=== PATIENT | female | born 1960 | race Caucasian/White ===

== ENCOUNTER 2017-03-29 06:14 | Inpatient (IN) ==
[~2017-03-29 06:14] MED LIST: MORPHINE 10 MG/10 ML VIAL ONE; SODIUM CHLORIDE 0.9% 100 ML IV ONE; TRANEXAMIC ACID 1,000 MG/10 ML VIAL IV ONE; VANCOMYCIN 1,000 MG VIAL ONE; VANCOMYCIN INJ 1,000 MG in SODIUM CHLORIDE 0.9% 250 ML IV ONE; ceFAZolin 1,000 MG VIAL ONE
[2017-03-29] MEDS ORDERED: ALBUTEROL/IPRATROPIUM 3 ML NEB RESP TX ONE (06:23)
[2017-03-29] MEDS: LACTATED RINGERS 1,000 ML IV SCH ×2 (06:47→21:28)
[2017-03-29] MEDS ORDERED: PROPOFOL 200 MG/20 ML VIAL IV ONE (07:09)
[2017-03-29] MEDS ORDERED: LIDOCAINE 1% 5 ML VIAL ONE (07:09)
--- NOTE | 2017-03-29 07:11 | History and Physical Update ---
History and Physical Update - History and Physical H&P was reviewed, the patient examined and there: are no changes in the patients condition since last H&P was completed.
[2017-03-29] MEDS ORDERED: MAGNESIUM HYDROXIDE SUSP 30 ML UDCUP PO PRN (07:12)
[2017-03-29] MEDS ORDERED: ONDANSETRON 4 MG/2 ML VIAL IV PRN (07:12)
[2017-03-29] MEDS ORDERED: BISACODYL 10 MG SUPP RECTAL PRN (07:12)
[2017-03-29] MEDS ORDERED: PROMETHAZINE 25 MG/1 ML VIAL IM PRN (07:12)
[2017-03-29] MEDS ORDERED: NALOXONE 0.4 MG/ML VIAL IV PRN (07:12)
[2017-03-29] MEDS ORDERED: LACTULOSE 20 GM/30 ML UDCUP PO PRN (07:12)
[2017-03-29] MEDS ORDERED: TEMAZEPAM 7.5 MG CAPSULE PO PRN (07:12)
[2017-03-29] MEDS ORDERED: diphenhydrAMINE CAP 25 MG CAPSULE PO PRN (07:12)
[2017-03-29] MEDS ORDERED: oxyCODONE/ACETAMINOPHEN 5-325 MG TABLET PO PRN (07:17)
[2017-03-29] MEDS ORDERED: ROPIVACAINE 0.5% 30 ML VIAL ONE ×2 (08:10→09:50)
[2017-03-29] MEDS: HYDROmorphone PCA 30 MG/30 ML SYRINGE IV SCH (09:29)
--- NOTE | 2017-03-29 09:43 | XRay Report ---
XR knee 2V LT Indication: Joint replacement Comparison: None Technique: Frontal and lateral views of the left knee Findings: Status post total left knee arthroplasty. Superficial skin augustina and surgical drains overlie the knee. Joint space and subcutaneous air noted which is likely postoperative. No evidence of immediate hardware failure. IMPRESSION: Status post total left knee arthroplasty. PROCEDURE INTERPRETED AT [facility] DEPARTMENT OF RADIOLOGY Final Report Signed by: Dr Elijah Valladares
[2017-03-29] MEDS ORDERED: HYDROmorphone 2 MG/1 ML VIAL ONE (09:47)
[2017-03-29] MEDS ORDERED: ONDANSETRON 4 MG/2 ML VIAL ONE (09:47)
[2017-03-29] MEDS ORDERED: BUPIVACAINE 0.5% 50 ML VIAL ONE (09:51)
--- NOTE | 2017-03-29 10:02 | Anesthesia Post-Op ---
Anesthesia Post OP - Post Ansesthetic Evaluation Patient seen in post op: Yes Resp: within normal limits CV: within normal limits Mental: within normal limits Temp: within normal limits Siyr-Fm-Ajlnqsswy: within normal limits Nausea and Vomiting: within normal limits Pain: within normal limits
[2017-03-29 10:36] LABS: Basophils # 0.1 10*3/uL (0.0-0.2); Basophils % 0.6 % (0.0-0.8); Eosinophils # 0.4 10*3/uL (0.0-0.87); Eosinophils % 4.9 % (0.00-10.9); Hematocrit 35.6 VOL% (35.7-47.0); Hemoglobin 11.7 GM/DL (12.0-16.0); Immature Granulocytes % 0.5 %; Immature Granulocytes Absolute 0.04 #; Lymphocytes # 1.9 10*3/uL (1.4-4.0); Lymphocytes % 24.6 % (21.3-54.2); Mean Corpuscular HGB Conc 32.9 GM/DL (32-36); Mean Corpuscular Hemoglobin 31 PG (27-34); Mean Corpuscular Volume 92.7 FL (87-102); Mean Platelet Volume 10.5 FL (9.6-12.0); Monocytes # 0.6 10*3/uL (0.11-0.8); Monocytes % 8.2 % (1.7-12.7); Neutrophils # 4.8 10*3/uL (1.4-7.4); Neutrophils % 61.2 % (38.7-73.9); Platelet Count 243 T/CUMM (130-400); Red Blood Count 3.84 MC/CUMM (3.8-5.5); Red Cell Distribution Width 14.3 % (9.3-17.3); White Blood Count 7.8 T/CUMM (4-12)
[2017-03-29 11:03] LABS: Calcium 8.7 MG/DL (8.5-10.1); Osmolality,Calculated 277.5 MOS/KG (273-304); Potassium 4.7 MMOL/L (3.5-5.1)
--- NOTE | 2017-03-29 11:08 | Pulmonology Progress Note ---
Pulmonary - PN: Subj Interval history: Horacio Maher, ANP-BC, GNP-BC, acting as scribe for Dr. Lazaro Apple Mrs. Rodriguez is a 56 year old white female who underwent left total knee replacement earlier today by Dr. Aj Jr. she was seen postop along with her and son. She appears to be doing well. She is without complaints or concerns. Past history is notable for: Iron deficiency anemia, atrophic gastritis, cheilosis, colon polyps, diverticulosis, hyperlipidemia, and sleep apnea. Medications have been reviewed. Her home medications have been restarted. Labs have been reviewed. White count is 7800 with a normal differential; H&H 11.7/35.6; platelet count 243,000; creatinine 0.80, BUN 14, electrolytes are normal. She is scheduled for repeat labs tomorrow. Exam (Progress Note) - Constitutional Vitals: Period Temp Pulse Resp BP Sys/Rodriguez Pulse Ox Last 24 Hr 98.2 F-98.8 F 66-78 14-18 91-152/50-97 94-99 Exam: Chest is clear Heart no gallop Abdomen is nontender and nondistended; bowel sounds are positive 4 Lower extremity postsurgical as per Dr. Rocha, Ubaldo; nothing to suggest acute deep venous thrombophlebitis Psychiatric presently oriented 3 Neurologic long-term motor function is intact Plan: Continue present treatment. Continue home medications. Agree with follow -up labs in the morning. See orders. Results - Labs CBC & BMP: 03/30/17 05:37 03/30/17 05:37
[2017-03-29] MEDS: BRIMONIDINE/TIMOLOL OPH SOLN 5 ML BOTTLE BOTH EYES SCH ×2 (11:26→20:17)
[2017-03-29] MEDS: oxyCODONE/ACETAMINOPHEN 5-325 MG TABLET PO SCH ×4 (11:30→20:14)
[2017-03-29] MEDS: DOCUSATE SODIUM 100 MG CAPSULE PO SCH ×2 (11:41→20:13)
[2017-03-29] MEDS: FERROUS SULFATE 325 MG TABLET PO SCH ×2 (11:41→20:12)
[2017-03-29] MEDS: clonazePAM 0.5 MG TABLET PO SCH ×2 (11:41→20:13)
[2017-03-29] MEDS: ESCITALOPRAM 10 MG TABLET PO SCH (11:42)
[2017-03-29] MEDS: GABAPENTIN 300 MG CAPSULE PO SCH ×2 (11:45→20:13)
[2017-03-29] MEDS ORDERED: MIDAZOLAM 2 MG/2 ML VIAL ONE (14:07)
[2017-03-29] MEDS ORDERED: fentaNYL 100 MCG/2 ML VIAL ONE (14:07)
[2017-03-29] MEDS ORDERED: SODIUM CHLORIDE 0.9% 250 ML IV ONE (14:08)
[2017-03-29] MEDS ORDERED: KETAMINE 500 MG/10 ML VIAL ONE (14:08)
--- NOTE | 2017-03-29 14:50 | Operative Note ---
DATE OF SURGERY: 03/29/2017 PREOPERATIVE DIAGNOSIS: OSTEOARTHRITIS, LEFT KNEE POSTOPERATIVE DIAGNOSIS: OSTEOARTHRITIS, LEFT KNEE OPERATIVE PROCEDURE: Left total knee (Attune) SURGEON: Alexey Rocha Jr., MD TILE DESIGNER: Dr. Gross ANESTHESIA: Spinal. INDICATIONS: A 56-year-old white female with severe osteoarthritis to her left knee. She is maximi zed conservative treatment to the year including multiple injections. She has also had a previous a rthroscopic procedure, which revealed significant changes to the chondral surfaces. Again, she is m aximized conservative treatments to the years presenting recently for evaluation, felt to be a naeem date for total knee, presenting today for elective procedure. OPERATIVE PROCEDURE: The patient was taken to the operating room, under spinal anesthetic, position ed supine position. The left leg positioned, prepped and draped in a usual sterile manner. She rec eived vancomycin and Ancef preoperatively. The limb was elevated, exsanguinated, and the tourniquet inflated to 330 mmHg. A midline incision made over the anterior aspect of the left knee. Sharp di ssection was carried down through the skin and subcutaneous tissue. A medial parapatellar arthrotom y performed, the knee revealing extensor tricompartmental degenerative changes, worse to the medial side, which was essentially grade 4 throughout. An Intramedullary alignment guide was used to make the appropriate cuts about the distal femur and proximal tibia. Both were sized to a 3 and 8 mm spac e were selected. The PCL retained. The patella resurfaced with a 32-button. After removal of the trial components, all three components were cemented into place. After the cement hardened, the wou nd was closed with over two 1/8 inch Hemovac drains in a standard fashion using #1 Vicryl for the ar throtomy, 2-0 Vicryl for the subcutaneous layer and augustina for skin. Tourniquet was deflated lars lopez wound closure at 35 minutes. She was taken to the recovery room in stable condition. ESTIMATED BLOOD LOSS: 100 mL. COUNTS: Correct.
--- NOTE | 2017-03-29 17:21 | Orthopedic Progress Note ---
Orthopedics - Subjective Interval history: Pain control fair good pulse postoperative block did not work that well discussed up in a.m. Exam - Constitutional Vitals: Period Temp Pulse Resp BP Sys/Rodriguez Pulse Ox Last 24 Hr 97.0 F-99.0 F 65-87 12-18 91-152/50-97 94-99 Results - Labs CBC & BMP: 03/29/17 10:16 03/29/17 10:16
[2017-03-29] MEDS ORDERED: HYDROmorphone 2 MG/1 ML VIAL IV PRN (17:22)
[2017-03-29] MEDS: FONDAPARINUX 2.5 MG/0.5 ML SYRINGE SUBCUT SCH (18:28)
[2017-03-29] MEDS ORDERED: ACETAMINOPHEN 325 MG TABLET PO PRN (18:36)
[2017-03-29] MEDS: DICLOFENAC POTASSIUM PO SCH ×2 (18:40→22:20)
[2017-03-30 06:05] LABS: Basophils % 0.3 % (0.0-0.8); Eosinophils # 0.4 10*3/uL (0.0-0.87); Eosinophils % 3.6 % (0.00-10.9); Hematocrit 31.1 VOL% (35.7-47.0); Hemoglobin 10.5 GM/DL (12.0-16.0); Immature Granulocytes % 0.4 %; Immature Granulocytes Absolute 0.04 #; Lymphocytes # 1.9 10*3/uL (1.4-4.0); Lymphocytes % 20.2 % (21.3-54.2); Mean Corpuscular HGB Conc 33.8 GM/DL (32-36); Mean Corpuscular Hemoglobin 32 PG (27-34); Mean Corpuscular Volume 93.4 FL (87-102); Mean Platelet Volume 10.6 FL (9.6-12.0); Monocytes # 1.3 10*3/uL (0.11-0.8); Neutrophils % 62.5 % (38.7-73.9); Platelet Count 195 T/CUMM (130-400); Red Blood Count 3.33 MC/CUMM (3.8-5.5); Red Cell Distribution Width 14.3 % (9.3-17.3); White Blood Count 9.6 T/CUMM (4-12)
[2017-03-30 06:35] LABS: Calcium 8.2 MG/DL (8.5-10.1); Osmolality,Calculated 278.4 MOS/KG (273-304)
--- NOTE | 2017-03-30 08:21 | Orthopedic Progress Note ---
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
[2017-03-30] MEDS: HYDROmorphone PCA 30 MG/30 ML SYRINGE IV SCH (08:46)
[2017-03-30] MEDS ORDERED: ROSUVASTATIN 10 MG TABLET PO SCH (09:00)
[2017-03-30] MEDS: GABAPENTIN 300 MG CAPSULE PO SCH ×2 (09:53→21:27)
[2017-03-30] MEDS: ESCITALOPRAM 10 MG TABLET PO SCH (09:53)
[2017-03-30] MEDS: DOCUSATE SODIUM 100 MG CAPSULE PO SCH ×2 (09:53→21:26)
[2017-03-30] MEDS: FERROUS SULFATE 325 MG TABLET PO SCH ×2 (09:53→21:27)
[2017-03-30] MEDS: DICLOFENAC POTASSIUM PO SCH ×4 (09:53→21:27)
[2017-03-30] MEDS: BRIMONIDINE/TIMOLOL OPH SOLN 5 ML BOTTLE BOTH EYES SCH ×2 (09:55→21:26)
[2017-03-30] MEDS: clonazePAM 0.5 MG TABLET PO SCH ×2 (10:02→21:27)
[2017-03-30] MEDS: oxyCODONE/ACETAMINOPHEN 5-325 MG TABLET PO SCH ×4 (10:03→21:27)
--- NOTE | 2017-03-30 10:23 | Pulmonology Progress Note ---
Pulmonary - PN: Subj Interval history: Mrs. Rodriguez is a 56 year old white female who underwent left total knee replacement earlier today by Dr. Aj Jr. she was seen postop along with her and son. She appears to be doing well. She is without complaints or concerns. Past history is notable for: Iron deficiency anemia, atrophic gastritis, cheilosis, colon polyps, diverticulosis, hyperlipidemia, and sleep apnea. Medications have been reviewed. Her home medications have been restarted. Labs have been reviewed. White count is 7800 with a normal differential; H&H 11.7/35.6; platelet count 243,000; creatinine 0.80, BUN 14, electrolytes are normal. She is scheduled for repeat labs tomorrow. 03/30/2017. Patient seen along with her . Her pain pump did not work last night. She is fine this morning is beginning range of motion for her legs. She is postop left total knee replacement. H&H is dropped from 11.7/35.6 -11.5/31.1. Patient is asymptomatic. White count platelets are normal electrolytes are normal creatinine is 0.8 with a BUN of 11. Glucoses are under good control. Exam (Progress Note) - Constitutional Vitals: Period Temp Pulse Resp BP Sys/Rodriguez Pulse Ox Last 24 Hr 98.2 F-98.8 F 66-78 14-18 91-152/50-97 94-99 Exam: Face. Symmetrical. Lips and tongue are normal. Neck. Symmetrical. No mass. No meningismus. Chest is clear Heart no gallop Abdomen is nontender and nondistended; bowel sounds are positive 4 Lower extremity postsurgical as per Dr. Rocha, Ubaldo; nothing to suggest acute deep venous thrombophlebitis Psychiatric presently oriented 3 Neurologic long-term motor function is intact The remainder the physical exam is noncontributory. Plan. Continue present treatment. Follow-up CBC in the morning. Exam (Progress Note) - Constitutional Vitals: Period Temp Pulse Resp BP Sys/Rodriguez Pulse Ox Last 24 Hr 97.0 F-99.0 F 65-108 12-20 93-136/47-84 94-98 Results - Labs CBC & BMP: 03/30/17 05:37 03/30/17 05:37
--- NOTE | 2017-03-30 12:41 | Pathology Report from [facility] ---
[facility] [place] [id number] PATIENT NAME : Brie Rodriguez ORDERING DR : BARB CHRISTY JR, MD CLINICAL HX: Left knee osteoarthritis POST-OP DX: Same SPECIMEN INFO: Left knee bone and tissue GROSS DESCRIPTION: The specimen is received in formalin labeled with the patients name and consists of an aggregate of bone, cartilage and soft tissue collectively measuring 10.2 x 15.1 cm. The articular surfaces are focally degenerative with subchondral eburnation and cartilaginous tissue present. Top Lift Scourer tissue submitted in one cassette following decalcification. DIAGNOSIS FOR BRIE RODRIGUEZ: LEFT KNEE BONE & TISSUE: Gross and microscopic finding consistent with osteoarthritis. COLLECTED DATE: 03/29/2017 [facility] REPORT DATE: 03/30/2017 ELECTRONICALLY SIGNED BY: Ruthie Jones III, M.D. 03/30/2017 - 10:29:41 [facility]
[2017-03-30] MEDS: FONDAPARINUX 2.5 MG/0.5 ML SYRINGE SUBCUT SCH (18:33)
[2017-03-30] MEDS: LACTATED RINGERS 1,000 ML IV SCH (21:30)
[2017-03-31 01:28] LABS: Basophils % 0.3 % (0.0-0.8); Eosinophils # 0.5 10*3/uL (0.0-0.87); Eosinophils % 4.8 % (0.00-10.9); Hematocrit 30.2 VOL% (35.7-47.0); Hemoglobin 9.7 GM/DL (12.0-16.0); Immature Granulocytes % 0.5 %; Immature Granulocytes Absolute 0.05 #; Lymphocytes # 1.8 10*3/uL (1.4-4.0); Mean Corpuscular HGB Conc 32.1 GM/DL (32-36); Mean Corpuscular Hemoglobin 31 PG (27-34); Mean Corpuscular Volume 95.6 FL (87-102); Mean Platelet Volume 10.3 FL (9.6-12.0); Monocytes % 9.8 % (1.7-12.7); Neutrophils # 6.6 10*3/uL (1.4-7.4); Neutrophils % 66.6 % (38.7-73.9); Platelet Count 172 T/CUMM (130-400); Red Blood Count 3.16 MC/CUMM (3.8-5.5); Red Cell Distribution Width 14.3 % (9.3-17.3); White Blood Count 9.9 T/CUMM (4-12)
[2017-03-31] MEDS: LACTATED RINGERS 1,000 ML IV SCH ×2 (03:33→06:57)
[2017-03-31] MEDS: HYDROmorphone PCA 30 MG/30 ML SYRINGE IV SCH (08:10)
[2017-03-31] MEDS: clonazePAM 0.5 MG TABLET PO SCH (09:57)
[2017-03-31] MEDS: oxyCODONE/ACETAMINOPHEN 5-325 MG TABLET PO SCH ×3 (09:57→17:28)
[2017-03-31] MEDS: GABAPENTIN 300 MG CAPSULE PO SCH (09:57)
[2017-03-31] MEDS: FERROUS SULFATE 325 MG TABLET PO SCH (09:57)
[2017-03-31] MEDS: ESCITALOPRAM 10 MG TABLET PO SCH (09:57)
[2017-03-31] MEDS: DICLOFENAC POTASSIUM PO SCH ×3 (09:57→17:02)
[2017-03-31] MEDS: FONDAPARINUX 2.5 MG/0.5 ML SYRINGE SUBCUT SCH (09:59)
[2017-03-31] MEDS: DOCUSATE SODIUM 100 MG CAPSULE PO SCH (12:08)
[2017-03-31] MEDS: BRIMONIDINE/TIMOLOL OPH SOLN 5 ML BOTTLE BOTH EYES SCH (12:08)
--- NOTE | 2017-03-31 12:16 | Orthopedic Progress Note ---
Orthopedics - Subjective Interval history: Hematocrit 30 comfortable mobilizing up and down rees ready for discharge he does well with PT will allow home therapy to begin tomorrow Exam - Constitutional Vitals: Period Temp Pulse Resp BP Sys/Rodriguez Pulse Ox Last 24 Hr 98.0 F-98.8 F 88-94 16-20 100-138/55-87 94-99 Results - Labs CBC & BMP: 03/31/17 01:14 03/30/17 05:37
--- NOTE | 2017-03-31 12:17 | Discharge Summary ---
Hospital Course - Hospital Course Hospital Course: Admitted for elective left total knee uncomplicated course discharged home Diagnosis - Discharge Diagnosis (1) Osteoarthritis of left knee Status: Acute Discharge Plan - Discharge Data Disposition: Home Health Service Condition at Discharge: Stable Discharge Diet: advance to your usual diet Activity: ambulate only with your walker, as per physical therapy, increase activity as tolerated Hygiene: may shower, keep area(s) dry Weight Bearing at Discharge: weight bear as tolerated - Discharge Medications Continue Rosuvastatin [Crestor] 5 mg PO MOWEFR Gabapentin 600 mg PO BEDTIME Ferrous Sulfate Tab [Feosol Original Tab] 325 mg PO BID Diclofenac Potassium [Zipsor] 25 mg PO QID Brimonidine/Timolol Oph Soln [Combigan] 1 drop INTRAOCULR BID [place]-3 Fatty Acids [Fish Oil] 900 mg PO DAILY hydroCHLOROthiazide [Hydrochlorothiazide] 12.5 mg PO DAILY Multivit-Min36/Iron/Folic Acid [Geritol Complete Tablet] 1 each PO DAILY Oxycodone HCl/Acetaminophen [Percocet 10-325 mg Tablet] 1 each PO QID Escitalopram [Lexapro] 20 mg PO DAILY clonazePAM TAB [KlonoPIN] 0.25 mg PO BID Cholecalciferol (Vitamin D3) [Vitamin D3] 10,000 unit PO DAILY - Follow Up or Referral - Forms/Instructions Additional Discharge Instructions: Discharged home with home health and home PT daily dressing change resume home medications Percocet 7.5 as needed for pain also aspirin once a day. Weightbearing as tolerated per total knee protocol with CPM unit. Follow-up with ca April 12 or Exam - Constitutional Vitals: Period Temp Pulse Resp BP Sys/Rodriguez Pulse Ox Last 24 Hr 98.0 F-98.8 F 88-94 16-20 100-138/55-87 94-99 Discharge Results Procedures and tests throughout hospitalization: Pending Orders 04/01/17 04:00 Comp Blood Count Auto Diff IN AM Labs on day of discharge: Labs from last 24 hours 03/31/17 01:14 WBC 9.9 RBC 3.16 L Hgb 9.7 L Hct 30.2 L MCV 95.6 MCH 31 MCHC 32.1 RDW 14.3 Plt Count 172 MPV 10.3 Neut % (Auto) 66.6 Lymph % (Auto) 18.0 L [place] % (Auto) 9.8 Eos % (Auto) 4.8 Baso % (Auto) 0.3 Neut # (Auto) 6.6 Lymph # (Auto) 1.8 [place] # (Auto) 1.0 H Eos # (Auto) 0.5 Baso # (Auto) 0.0 Immature Gran % 0.5 Nucleated RBC % 0.0 Immature Gran # 0.05 Nucleated RBCs # 0.00 DS: Provider Date of admission: 03/29/17 06:14 Primary care physician: Bebo Santiago MD Attending physician on admission: Alexey Rocha Jr., MD Consults: 03/29/17 07:12 Consult to Case Mgmt/Social Srvs [CONS] Routine Reason for Case Mgmt/Social Srvs: Rehab Home Health Equipment Consult Comment: CPM Machine deliver to rm 317 before D/C home Consult to Occupational Therapy [CONS] Routine Reason for Occupational Therapy: Evaluate and Treat Consult Comment: ADL's Consult to Physical Therapy [CONS] Routine Reason for Physical Therapy: Evaluate and Treat Gait Training 03/29/17 07:14 Consult to Physician [CONS] Routine Comment: Consulting Provider: Lazaro Apple Consulting Provider Notified: Yes When should Consulting Provider be notified: Now Person Notified: praveena sweeney Date Notified: 03/29/17 Time Notified: 10:49 03/30/17 08:08 Consult to Physical Therapy [CONS] Routine Reason for Physical Therapy: Other Consult Comment: Please deliver Standard Walker to rm before D/C for home rehab use. Discharging clinician: Alexey Rocha Jr., MD
--- NOTE | 2017-03-31 12:20 | Pulmonology Progress Note ---
Pulmonary - PN: Subj Interval history: Mrs. Rodriguez is a 56 year old white female who underwent left total knee replacement earlier today by Dr. Aj Jr. she was seen postop along with her and son. She appears to be doing well. She is without complaints or concerns. Past history is notable for: Iron deficiency anemia, atrophic gastritis, cheilosis, colon polyps, diverticulosis, hyperlipidemia, and sleep apnea. Medications have been reviewed. Her home medications have been restarted. Labs have been reviewed. White count is 7800 with a normal differential; H&H 11.7/35.6; platelet count 243,000; creatinine 0.80, BUN 14, electrolytes are normal. She is scheduled for repeat labs tomorrow. 03/30/2017. Patient seen along with her . Her pain pump did not work last night. She is fine this morning is beginning range of motion for her legs. She is postop left total knee replacement. H&H is dropped from 11.7/35.6 -11.5/31.1. Patient is asymptomatic. White count platelets are normal electrolytes are normal creatinine is 0.8 with a BUN of 11. Glucoses are under good control. 03/31/2017. Patient continues to do very well her CBC is stable. She is anticipating discharge later today. She was seen along with physical therapy. She follows SBE prophylaxis and I discussed that with her today. I rewrote her prescriptions for amoxicillin that she will take before dental and surgical procedures. There are no new problems and overall this patient's done very well. I will sign off. Please reconsult if needed. Exam (Progress Note) - Constitutional Vitals: Period Temp Pulse Resp BP Sys/Rodriguez Pulse Ox Last 24 Hr 98.2 F-98.8 F 66-78 14-18 91-152/50-97 94-99 Exam: Face. Symmetrical. Lips and tongue are normal. Neck. Symmetrical. No mass. No meningismus. Chest is clear Heart no gallop Abdomen is nontender and nondistended; bowel sounds are positive 4 Lower extremity postsurgical as per Dr. Rocha, Ubaldo; nothing to suggest acute deep venous thrombophlebitis Psychiatric presently oriented 3 Neurologic long-term motor function is intact The remainder the physical exam is noncontributory. Plan. 1. 03/30/2017. Continue present treatment. Follow-up CBC in the morning. 2. 03/31/2017. Patient is doing very well. See today's note above. I agree with your plans. I will sign off. Reconsult me if needed. Exam (Progress Note) - Constitutional Vitals: Period Temp Pulse Resp BP Sys/Rodriguez Pulse Ox Last 24 Hr 98.0 F-98.8 F 88-94 16-20 100-138/55-87 94-99 Results - Labs CBC & BMP: 03/31/17 01:14 03/30/17 05:37 Specialty Discharge - Follow Up or Referrals
[2017-03-31 16:09] VITALS: BP 110/66
== END 2017-03-31 17:30 | disposition home health service (06) | DRG 470 ==
LOC: N.SDSINP 06:14 → N.3E 09:32
PROVIDERS: ADMIT Orthopaedic Surgery; ATTEND Orthopaedic Surgery

== ENCOUNTER 2022-02-09 11:48 | Inpatient (IN) ==
[2022-02-09 12:32] LABS: Basophils # 0.1 10*3/uL (0.0-0.2); Basophils % 0.5 % (0.0-0.8); Eosinophils # 0.1 10*3/uL (0.0-0.87); Eosinophils % 1.1 % (0.00-10.9); Hematocrit 42.3 VOL% (35.7-47.0); Hemoglobin 13.1 GM/DL (12.0-16.0); Immature Granulocytes % 0.4 %; Immature Granulocytes Absolute 0.05 #; Lymphocytes # 3.1 10*3/uL (1.4-4.0); Lymphocytes % 24.2 % (21.3-54.2); Mean Corpuscular Volume 85.6 FL (87-102); Mean Platelet Volume 12.1 FL (9.6-12.0); Monocytes % 11.2 % (1.7-12.7); Neutrophils % 62.6 % (38.7-73.9); Platelet Count 259 T/CUMM (130-400); Red Blood Count 4.94 MC/CUMM (3.8-5.5); Red Cell Distribution Width 15.8 % (9.3-17.3); White Blood Count 12.6 T/CUMM (4-12)
[2022-02-09 12:42] LABS: INR 1.1; PT Patient Result 11.8 SECS (10.5-12.0); Partial Thromboplastin Time 27.3 SECS (23.8-32.1)
[2022-02-09 12:51] LABS: Albumin 3.9 G/DL (3.4-5.0); Bilirubin,Total 0.8 MG/DL (0.20-1.00); Calcium 9.5 MG/DL (8.5-10.1); Potassium 3.9 MMOL/L (3.5-5.1); Total Protein 8.4 G/DL (6.4-8.2)
[2022-02-09] MEDS ORDERED: MORPHINE 2 MG/1 ML SYRINGE IV PRN (13:02)
[2022-02-09] MEDS ORDERED: MAGNESIUM SULF RIDER 2 GM/50 ML PREMIX IV PRN (13:02)
[2022-02-09] MEDS ORDERED: ONDANSETRON 4 MG/2 ML VIAL IV PRN (13:02)
[2022-02-09] MEDS ORDERED: ACETAMINOPHEN 325 MG TABLET PO PRN (13:02)
[2022-02-09] MEDS ORDERED: ZALEPLON 5 MG CAPSULE PO PRN (13:02)
[2022-02-09] MEDS ORDERED: diphenhydrAMINE CAP 25 MG CAPSULE PO PRN (13:02)
[2022-02-09] MEDS ORDERED: ALUMINUM/MAGNES/SIMETH MAX STR 30 ML UDCUP PO PRN (13:02)
[2022-02-09] MEDS ORDERED: MAGNESIUM SULF RIDER 4 GM/100 ML PREMIX IV PRN (13:02)
[2022-02-09] MEDS ORDERED: ceFAZolin 1,000 MG VIAL IRRIG ONE (13:07)
[2022-02-09] MEDS ORDERED: ASPIRIN 325 MG TABLET PO ONE (13:25)
[2022-02-09] MEDS ORDERED: diphenhydrAMINE CAP 50 MG CAPSULE PO ONE (13:25)
[2022-02-09] MEDS ORDERED: DIAZEPAM 5 MG TABLET PO ONE (13:25)
[2022-02-09] MEDS ORDERED: diphenhydrAMINE CAP 25 MG CAPSULE PO ONE (14:00)
[2022-02-09] MEDS ORDERED: HEPARIN/NACL 0.9% 2 UNITS/ML 2,000 UNIT/1,000 ML BAG IV ONE (16:07)
[2022-02-09] MEDS ORDERED: fentaNYL 100 MCG/2 ML VIAL ONE (16:56)
[2022-02-09] MEDS ORDERED: MIDAZOLAM 2 MG/2 ML VIAL ONE ×3 (16:56→18:00)
[2022-02-09] MEDS ORDERED: ATROPINE 1 MG/10 ML SYRINGE ONE ×3 (17:16→17:32)
[2022-02-09] MEDS ORDERED: ceFAZolin 1,000 MG VIAL ONE (17:29)
[2022-02-09] MEDS ORDERED: HYDROmorphone 1 MG/1 ML SYRINGE ONE (17:50)
[2022-02-09] MEDS ORDERED: TISSUE ADHESIVE 1 EACH APPLICATOR TOP ONE (18:23)
[2022-02-09] MEDS ORDERED: METHOCARBAMOL 750 MG TABLET PO PRN (19:09)
[2022-02-09] MEDS: SODIUM CHLORIDE 0.9% 1,000 ML IV SCH ×2 (19:35→23:10)
[2022-02-09] MEDS: GABAPENTIN 300 MG CAPSULE PO SCH (20:34)
[2022-02-09] MEDS: DORZOLAMIDE/TIMOLOL OPH SOLN 10 ML BOTTLE BOTH EYES SCH (20:34)
[2022-02-09] MEDS: DEXTROAMPHETAMINE AMPHETAMINE 20 MG PO SCH (20:36)
[2022-02-09] MEDS: NON-FORMULARY MEDICATION (Inulin [Fiber Gummies] 2 gram Tablet,Chewable) PO SCH (20:36)
[2022-02-09] MEDS ORDERED: ROSUVASTATIN 10 MG TABLET PO SCH (21:00)
[2022-02-10] MEDS: SODIUM CHLORIDE 0.9% 1,000 ML IV SCH ×2 (01:29→06:22)
[2022-02-10 04:31] LABS: Basophils % 0.4 % (0.0-0.8); Eosinophils # 0.1 10*3/uL (0.0-0.87); Eosinophils % 0.9 % (0.00-10.9); Hematocrit 36.4 VOL% (35.7-47.0); Immature Granulocytes % 0.2 %; Immature Granulocytes Absolute 0.02 #; Lymphocytes # 2.8 10*3/uL (1.4-4.0); Lymphocytes % 31.1 % (21.3-54.2); Mean Corpuscular HGB Conc 30.2 GM/DL (32-36); Mean Corpuscular Volume 87.9 FL (87-102); Monocytes % 12.5 % (1.7-12.7); Neutrophils % 54.9 % (38.7-73.9); Platelet Count 184 T/CUMM (130-400); Red Blood Count 4.14 MC/CUMM (3.8-5.5); Red Cell Distribution Width 16.1 % (9.3-17.3)
[2022-02-10 04:59] LABS: Albumin 3.1 G/DL (3.4-5.0); Bilirubin,Total 0.8 MG/DL (0.20-1.00); Calcium 8.4 MG/DL (8.5-10.1); Potassium 3.9 MMOL/L (3.5-5.1); Total Protein 7.4 G/DL (6.4-8.2)
[2022-02-10 05:01] LABS: Risk Ratio 5.06; VLDL Cholesterol 40.4 MG/DL
[2022-02-10 05:20] LABS: Osmolality,Calculated 279.5 MOS/KG (273-304)
[2022-02-10] MEDS ORDERED: LEVOTHYROXINE 75 MCG TABLET PO SCH (06:30)
[2022-02-10] MEDS ORDERED: LINACLOTIDE 145 MCG CAPSULE PO SCH (07:30)
[2022-02-10] MEDS ORDERED: PANTOPRAZOLE 40 MG TABLET PO SCH (09:00)
[2022-02-10] MEDS ORDERED: CETIRIZINE 10 MG TABLET PO SCH (09:00)
[2022-02-10] MEDS ORDERED: ESCITALOPRAM 10 MG TABLET PO SCH (09:00)
[2022-02-10] MEDS ORDERED: DAPAGLIFLOZIN 10 MG TABLET PO SCH (09:00)
[2022-02-10] MEDS ORDERED: NUTRAFOL PO SCH (09:00)
[2022-02-10] MEDS ORDERED: MAGNESIUM OXIDE 400 MG TABLET PO SCH (09:00)
[2022-02-10] MEDS ORDERED: FENOFIBRATE 145 MG TABLET PO SCH (09:00)
[2022-02-10] MEDS: NON-FORMULARY MEDICATION (Inulin [Fiber Gummies] 2 gram Tablet,Chewable) PO SCH (09:54)
[2022-02-10] MEDS: DEXTROAMPHETAMINE AMPHETAMINE 20 MG PO SCH (09:54)
[2022-02-10] MEDS: GABAPENTIN 300 MG CAPSULE PO SCH (09:54)
[2022-02-10] MEDS: DORZOLAMIDE/TIMOLOL OPH SOLN 10 ML BOTTLE BOTH EYES SCH (10:51)
[2022-02-10 12:21] VITALS: BP 130/63
== END 2022-02-10 12:41 | disposition home or self-care (01) | DRG 243 ==
LOC: N.ED 11:48 → N.TELEN 16:45 → N.EDINP 16:50 → N.TELEN 16:56
PROVIDERS: ADMIT Internal Medicine Cardiovascular Disease; ATTEND Internal Medicine Cardiovascular Disease
PROC: CLCCHCL (ICD-10-PCS; 2022-02-09 17:45)